=== PATIENT | female | born 1980 | race Caucasian/White ===

== ENCOUNTER 2021-09-08 16:35 | Emergency (ER) | payer OTHER ==
[2021-09-08] MEDS ORDERED: Sodium Chloride 0.9% 10 ML Syringe FLUSH PRN (18:19)
[2021-09-08] MEDS ORDERED: Sodium Chloride 0.9% 10 ML Syringe FLUSH ONE (18:22)
[2021-09-08] MEDS ORDERED: Iopamidol 755 Mg/ML 100 ML Bottle IVPUSH ONE (18:22)
[2021-09-08] MEDS ORDERED: Sodium Chloride 0.9% 100 ML IV SCH (18:30)
== END 2021-09-08 19:44 | disposition home or self-care (01) ==
LOC: JD.ED 16:35
DX: R07.89 Other chest pain (principal); Z88.2 Allergy status to sulfonamides
CPT/HCPCS: 36415; 71045; 71275; 80053; 84484; 85025; 85379; 93005; 99285; J3490; Q9967; 93010

== ENCOUNTER 2024-01-06 15:50 | Emergency (ER) | payer OTHER ==
[2024-01-06] MEDS: Ketorolac 60 MG/2 ML SDV IM ONE (17:01)
== END 2024-01-06 18:45 | disposition home or self-care (01) ==
LOC: JD.ED 15:50
DX: M16.0 Bilateral primary osteoarthritis of hip (principal); Z88.2 Allergy status to sulfonamides; Z79.899 Other long term (current) drug therapy
CPT/HCPCS: 72192; 73502; 96372; 99284; J1885

== ENCOUNTER 2024-01-31 07:50 | Day surgery (SDC) | payer OTHER ==
[~2024-01-31 07:50] MED LIST: Acetaminophen 325 MG Tab PO SCH; Lactated Ringers 1,000 ML IV SCH; Lidocaine 1% 5 ML VIAL ONE; Pregabalin 25 MG Cap PO SCH; Propofol 200 MG/20 ML SDV ONE; Sodium Chloride 0.9% 10 ML Syringe FLUSH PRN; Sodium Chloride 0.9% 10 ML Syringe FLUSH SCH; Sodium Chloride 0.9% 100 ML ONE; ceFAZolin 2 GM Vial ONE; dexmedeTOMIDine HCl 200 MCG/2 ML SDV ONE; ePHEDrine 50 MG/ML SDV ONE; oxyCODONE ER 10 MG TAB.ER PO SCH
[2024-01-31] MEDS ORDERED: Ondansetron 4 MG/2 ML SDV IVPUSH PRN (08:09)
[2024-01-31] MEDS ORDERED: HYDROmorphone 0.5 MG/0.5 ML Syringe IVPUSH PRN (08:09)
[2024-01-31] MEDS ORDERED: fentaNYL 100 MCG/2 ML SDV IVPUSH PRN (08:09)
[2024-01-31] MEDS ORDERED: Propofol 200 MG/20 ML SDV ONE (08:14)
[2024-01-31] MEDS ORDERED: Midazolam 1 MG/ML 2 ML SDV ONE (08:17)
[2024-01-31] MEDS ORDERED: fentaNYL 100 MCG/2 ML SDV ONE (08:18)
[2024-01-31] MEDS ORDERED: oxyCODONE 5 MG Tab PO PRN (11:19)
[2024-01-31] MEDS: Vancomycin 1 GM SDV ONE (12:14)
[2024-01-31] MEDS: Tranexamic Acid 1,000 MG/10 ML Vial ONE (12:15)
[2024-01-31] MEDS: Morphine 8 MG, EPINEPHrine 0.3 MG, Cefuroxime 750 MG, Ketorolac 30 MG, Sodium Chloride ... PRN (12:16)
== END 2024-01-31 14:46 | disposition home or self-care (01) ==
LOC: JD.SDS 07:50
PROVIDERS: ATTEND Orthopaedic Surgery
DX: M16.12 Unilateral primary osteoarthritis, left hip (principal); M16.11 Unilateral primary osteoarthritis, right hip; Q65.89 Other specified congenital deformities of hip; Z88.2 Allergy status to sulfonamides; Z79.899 Other long term (current) drug therapy; Z79.82 Long term (current) use of aspirin
CPT/HCPCS: 0055T; 27130; 36415; 73501; 86850; 86900; 86901; 87641; 97110; 97161; C1713; C1776; J0171; J0690; J0697; J1885; J2250; J2270; J2704; J3010; J3370; J3490; 01214